=== PATIENT | female | born 1955 | race Caucasian/White ===

== ENCOUNTER 2018-04-02 05:36 | Outpatient (CLI) | payer OTHER ==
[~2018-04-02] VITALS: Ht 165.1 cm; Wt 77.1 kg
[2018-04-02] MEDS ORDERED: NF-ESOM40C PO (13:24)
== END 2018-04-02 13:29 ==
LOC: PREOP 05:36
PROVIDERS: ATTEND Surgery
DX: Z01.818 Encounter for other preprocedural examination (principal)

== ENCOUNTER 2018-04-06 11:12 | Day surgery (SDC) | payer OTHER ==
[~2018-04-06] VITALS: Ht 165.1 cm; Wt 77.1 kg
[~2018-04-06 11:12] MED LIST: NF-ESOM40C PO
[2018-04-06] MEDS ORDERED: LACTATED RINGERS 1,000 ML IV ONE (11:14)
--- OUTSIDE RECORDS SUMMARY | 2018-04-06 11:20 | XMS REPORT ---
Author BHAVNA Alva Organization [employer] Address Unknown Phone Unavailable Care Team Providers Care Trim Technician Name Role Phone BHAVNA LACY CP Unavailable Allergies, Adverse Reactions, Alerts Substance Reaction Event Type N.K.D.A. Info Not Available Non Drug Allergy Problems Problem Type Condition Code Onset Dates Condition Status Assessment Dental examination Z01.20 Active Problem Encounter for dental examination Z01.20 Active Medications No Known Medications Procedures Procedure Coding System Code Date AMALGAM-3 SURFACES PRIMARY/PERM CPT-4 D2160 Nov 07, 2015 Vital Signs Date/Time: Nov 07, 2015 Blood Pressure Diastolic 65 mmHg Blood Pressure Systolic 123 mmHg Results No Known Results Summary Purpose [employer] Submission
--- OUTSIDE RECORDS SUMMARY | 2018-04-06 11:20 | XMS REPORT ---
Author Author BRADLEY ALVAREZ [facility] Address [address] [place] [address] Care Team Providers Care Boot Turner Name Role Phone BRADLEY ALVAREZ Unavailable PROBLEMS Unknown Problems ALLERGIES No Known Allergies ENCOUNTERS IMMUNIZATIONS No Known Immunizations SOCIAL HISTORY No smoking Hx information available REASON FOR VISIT PLAN OF CARE VITAL SIGNS MEDICATIONS No Known Medications RESULTS PROCEDURES INSTRUCTIONS MEDICATIONS ADMINISTERED No Known Medications MEDICAL (GENERAL) HISTORY
--- OUTSIDE RECORDS SUMMARY | 2018-04-06 11:20 | XMS REPORT ---
Author Author BIANKA RONDON [facility] [employer] Address Unknown Phone Unavailable Care Team Providers Care Product Marketing Executive Name Role Phone BIANKA RONDON CP Unavailable Allergies, Adverse Reactions, Alerts Substance Reaction Event Type N.K.D.A. Info Not Available Non Drug Allergy Problems Problem Type Condition Code Onset Dates Condition Status Assessment Visit for dental examination Z01.20 Active Assessment Encounter for dental examination Z01.20 Active Problem Encounter for dental examination Z01.20 Active Medications No Known Medications Procedures Procedure Coding System Code Date Periodontal scaling and root CPT-4 D4341 August 30, 2015 Periodontal scaling and root CPT-4 D4341 August 30, 2015 INTRAORL-PERIAPICAL 1 FILM 37759 CPT-4 D0220 August 30, 2015 INTRAORL-PERIAPICAL EA ADD FILM CPT-4 D0230 August 30, 2015 COMP ORAL EVALUATION - NEW/EST PT CPT-4 D0150 August 30, 2015 PANORAMIC FILM SEE ALSO CODE 03625 CPT-4 D0330 August 30, 2015 BITEWINGS - FOUR FILMS CPT-4 D0274 August 30, 2015 PROPHYLAXIS - ADULT CPT-4 D1110 August 30, 2015 INTRAORL-PERIAPICAL EA ADD FILM CPT-4 D0230 August 30, 2015 INTRAORL-PERIAPICAL EA ADD FILM CPT-4 D0230 August 30, 2015 INTRAORL-PERIAPICAL EA ADD FILM CPT-4 D0230 August 30, 2015 INTRAORL-PERIAPICAL EA ADD FILM CPT-4 D0230 August 30, 2015 Vital Signs Date/Time: August 30, 2015 Blood Pressure Diastolic 65 mmHg Blood Pressure Systolic 107 mmHg Results No Known Results Summary Purpose eClinicalWorks Submission
[2018-04-06] MEDS ORDERED: LACTATED RINGERS 1,000 ML IV STA (11:27)
[2018-04-06 11:39] VITALS: BP 121/76
[2018-04-06] MEDS ORDERED: PROPOFOL INJECTION 50 ML IV ONE (12:28)
--- NOTE | 2018-04-06 13:06 | Progress Note-Pre Operative ---
Pre-Operative Progress Note H&P Reviewed The H&P was reviewed, patient examined and no changes noted. Time Seen by Provider: 13:04 Date H&P Reviewed: Apr 06, 2018 Time H&P Reviewed: 13:05 Pre-Operative Diagnosis: Rectal bleed, hx of UC SHANNAN HAMILTON DO Apr 06, 2018 13:06
--- NOTE | 2018-04-06 13:46 | Progress Note-Post Operative ---
Post-Operative Progess Note Surgeon (s)/Ambulatory Care (s) Surgeon SHANNAN HAMILTON DO Ambulatory Care: none Pre-Operative Diagnosis Rectal bleed, hx of UC Post-Operative Diagnosis Sigmoid colon polyp Diverticula Internal hemorrhoids Procedure & Operative Findings Date of Procedure 04/06/18 Procedure Performed/Findings Colon with cold bx Anesthesia Type IV sedation by RN NURSERY Estimated Blood Loss Estimated blood loss (mL): scant Specimens/Packing Specimens Removed sigmoid polyp x 2 SHANNAN HAMILTON DO Apr 06, 2018 13:46
--- NOTE | 2018-04-06 13:48 | Endoscopy Discharge Instruct ---
Endo Procedure/Findings Findings 1.: Polyp 2.: Diverticulosis 3.: Internal Hemorrhoids Discharge Instructions - Activity: You might feel a little sleepy until tomorrow. This is due to the medicine you received to relax you. Until tomorrow, you should: NOT drive a car, operate machinery or power tools. NOT drink any alcoholic beverages. NOT make any important decisions or sign importortant papers. Do not return to work until tomorrow, unless otherwise instructed. Resume previous activities tomorrow. Diet: Start by taking liquids. If you tolerate liquids, advance to solid food. Make an appointment for one week. Notify Physician - If you experience excessive bleeding, unusual abdominal pain, fever, or chest pain, contact your doctor immediately. Follow-Up: - I have received and understand the above instructions and will call my doctor if I have any further questions. Patient Signature Date Nurse Signature Other (Relationship) SHANNAN HAMILTON DO Apr 06, 2018 13:47
[2018-04-06 14:05] VITALS: BP 123/69
[2018-04-06 14:25] VITALS: BP 119/72
[2018-04-06 14:40] VITALS: BP 119/72
--- NOTE | 2018-04-06 23:51 | OPERATIVE REPORT ---
DATE OF SERVICE: 04/06/2018 PREOPERATIVE DIAGNOSES: Some rectal bleed, history of colitis. POSTOPERATIVE DIAGNOSES: 1. Sigmoid polyps. 2. Diverticula. 3. Internal hemorrhoids. PROCEDURE: Colonoscopy with cold biopsy. SURGEON: Bowen Moore DO SOCIAL SCIENCES RESEARCH SCIENTIST: None. ANESTHESIA: IV sedation by the MACHINE FELLER. SPECIMEN: Two polyps from the sigmoid colon. BLOOD LOSS: Scant. FLUIDS: Per anesthesia. POSTOPERATIVE CONDITION: Stable. INDICATION FOR PROCEDURE: The patient is a 62-year-old female who stated she had some ulcerative colitis, has not had a colonoscopy since 2000, started seeing some bleeding recently. FINDINGS: The patient had 2 small polyps in the sigmoid colon, a large diverticula, mostly in the sigmoid and descending colon, but some in the right colon as well and she had some grade I almost 2 internal hemorrhoids. PROCEDURE NOTE: After informed consent was obtained, the patient was brought to the endoscopy suite, placed in the bed in the left lateral decubitus position. She was administered IV sedation by the MACHINE FELLER who then monitored her vitals the entire time, heart rate, blood pressure and pulse ox and the scope was inserted, pushed all the way to about [address], noted some large diverticula, took pictures. Once in the cecum, took a picture of appendiceal orifice, noted the ileocecal valve and then slowly withdrew the scope insufflating to look circumferentially at the garcia looking at the cecum up the ascending colon to the hepatic flexure, down the transverse colon, the splenic flexure, into the descending colon down and sigmoid. In the sigmoid, saw two flat polyps, tried to snare these, but unable to. cold biopsy to remove these and continued down into the rectum, retroflexed the rectal vault, saw some grade I almost II internal hemorrhoids, did not see any signs of ulcerative colitis. The patient may have been wrong about that diagnosis. Removed the scope. The patient tolerated the procedure well and recovered in endoscopy suite. Job ID: [id number] DocumentID: [id number] Dictated Date: 04/06/2018 15:03:54 Data Quality Consultant Date: 04/06/2018 23:51:04 Dictated By: BOWEN MOORE DO
== END 2018-04-06 14:40 | disposition home or self-care (01) ==
LOC: ENDO 11:12
PROVIDERS: ATTEND Surgery
DX: K52.9 Noninfective gastroenteritis and colitis, unspecified (principal); K63.89 Other specified diseases of intestine; K63.5 Polyp of colon; K57.30 Diverticulosis of large intestine without perforation or abscess without bleeding; K64.8 Other hemorrhoids; N28.9 Disorder of kidney and ureter, unspecified; Z87.891 Personal history of nicotine dependence; Z87.19 Personal history of other diseases of the digestive system

== ENCOUNTER → 2019-05-11 | Outpatient (CLI) | payer OTHER ==
--- NOTE | 2019-05-11 10:06 | Diagnostic Imaging Report ---
PROCEDURE: US Gallbladder. TECHNIQUE: Multiple real-time grayscale images were obtained over the right upper quadrant in various projections. INDICATION: Right upper quadrant pain. FINDINGS: The gallbladder is distended measuring 15 cm in length with 4.5 cm transverse diameter. There are multiple intraluminal gallstones present. It appeared mobile, the gallbladder wall is 2.6 mm in thickness. The pancreas could not be visualized. The unobstructed right kidney measured 8.2 cm. The liver parenchyma normal. No biliary dilatation. IMPRESSION: Stone-containing, distended gallbladder with no intra or extrahepatic bile duct dilatation. No ascites or acute fluid collection demonstrated. Dictated by: Dictated on workstation # [id number]
== END ==
LOC: RAD 07:46
PROVIDERS: ATTEND Nurse Practitioner Primary Care
DX: K80.20 Calculus of gallbladder without cholecystitis without obstruction (principal)
CPT/HCPCS: 76705

== ENCOUNTER 2019-07-27 05:39 | Outpatient (RCR) | payer OTHER ==
[~2019-07-27] VITALS: Ht 165 cm; Wt 81.0 kg
== END 2019-07-27 15:15 | disposition home or self-care (01) ==
LOC: PREOP 05:39
PROVIDERS: ATTEND Specialist
DX: Z01.818 Encounter for other preprocedural examination (principal); Z11.59 Encounter for screening for other viral diseases
CPT/HCPCS: 87635

== ENCOUNTER 2019-07-30 09:44 | Day surgery (SDC) | payer OTHER ==
[~2019-07-30] VITALS: Ht 165 cm; Wt 81.0 kg
[2019-07-30 10:15] VITALS: BP 126/77
--- OUTSIDE RECORDS SUMMARY | 2019-07-30 10:19 | XMS REPORT | Continuity of Care Document ---
Author Organization Unknown Address Unknown Phone Unavailable Allergies Active Description Code Type Severity Reaction Onset Reported/Identified Relationship to Patient Clinical Status Yes No Known Drug Allergies [id number] Drug Allergy Unknown N/A 04/02/2018 Medications There is no data. Problems Date Dx Coded Attending Type Code Diagnosis Diagnosed By 04/02/2018 SHANNAN HAMILTON DO Ot Z01.8 18 ENCOUNTER FOR OTHER PREPROCEDURAL EXAMIN 04/06/2018 SHANNAN HAMILTON DO Ot K52.9 NONINFECTIVE GASTROENTERITIS AND COLITIS 04/06/2018 SHANNAN HAMILTON DO Ot K57.3 0 DVRTCLOS OF LG INT W/O PERFORATION OR AB 04/06/2018 SHANNAN HAMILTON DO Ot K63.5 POLYP OF COLON 04/06/2018 SHANNAN HAMILTON DO Ot K63.8 9 OTHER SPECIFIED DISEASES OF INTESTINE 04/06/2018 SHANNAN HAMILTON DO Ot K64.8 OTHER HEMORRHOIDS 04/06/2018 SHANNAN HAMILTON DO Ot N28.9 DISORDER OF KIDNEY AND URETER, UNSPECIFI 04/06/2018 SHANNAN HAMILTON DO Ot Z87.1 9 PERSONAL HISTORY OF OTHER DISEASES OF TH 04/06/2018 SHANNAN HAMILTON DO Ot Z87.8 91 PERSONAL HISTORY OF NICOTINE DEPENDENCE 04/07/2018 SHANNAN HAMILTON DO Ot Z01.8 18 ENCOUNTER FOR OTHER PREPROCEDURAL EXAMIN 04/09/2018 SHANNAN HAMILTON DO Ot K52.9 NONINFECTIVE GASTROENTERITIS AND COLITIS 04/09/2018 SHANNAN HAMILTON DO Ot K57.3 0 DVRTCLOS OF LG INT W/O PERFORATION OR AB 04/09/2018 SHANNAN HAMILTON DO Ot K63.5 POLYP OF COLON 04/09/2018 SHANNAN HAMILTON DO Ot K63.8 9 OTHER SPECIFIED DISEASES OF INTESTINE 04/09/2018 SHANNAN HAMILTON DO Ot K64.8 OTHER HEMORRHOIDS 04/09/2018 SHANNAN HAMILTON DO Ot N28.9 DISORDER OF KIDNEY AND URETER, UNSPECIFI 04/09/2018 SHANNAN HAMILTON DO Ot Z87.1 9 PERSONAL HISTORY OF OTHER DISEASES OF TH 04/09/2018 SHANNAN HAMILTON DO Ot Z87.8 91 PERSONAL HISTORY OF NICOTINE DEPENDENCE 05/12/2019 JS AGUILERA APRN Ot K80.20 CALCULUS OF GALLBLADDER W/O CHOLECYSTITI 05/13/2019 JS AGUILERA APRN Ot K80.20 CALCULUS OF GALLBLADDER W/O CHOLECYSTITI 07/22/2019 JS AGUILERA APRN Ot K80.20 CALCULUS OF GALLBLADDER W/O CHOLECYSTITI 07/27/2019 JS AGUILERA APRN Ot K80.20 CALCULUS OF GALLBLADDER W/O CHOLECYSTITI Procedures There is no data. Results Test Result Range - 04/23/19 15:28 GLUCOSE 85 mg/dL 65-139 UREA NITROGEN (BUN) 11 mg/dL 7-25 CREATININE 0.91 mg/dL 0.50-0.99 eGFR NON-AFR. BOTSWANAN 67 mL/min/1.73m2 > OR = 60 eGFR 77 mL/min/1.73m2 > OR = 60 BUN/CREATININE RATIO NOT APPLICABLE (calc) 6-22 SODIUM 140 mmol/L 135-146 POTASSIUM 4.0 mmol/L 3.5-5.3 CHLORIDE 103 mmol/L 98-110 CARBON DIOXIDE 30 mmol/L 20-32 CALCIUM 9.4 mg/dL 8.6-10.4 PROTEIN, TOTAL 7.0 g/dL 6.1-8.1 ALBUMIN 4.4 g/dL 3.6-5.1 GLOBULIN 2.6 g/dL (calc) 1.9-3.7 ALBUMIN/GLOBULIN RATIO 1.7 (calc) 1.0-2. 5 BILIRUBIN, TOTAL 0.5 mg/dL 0.2-1.2 ALKALINE PHOSPHATASE 100 U/L 37-153 AST 17 U/L 10-35 ALT 16 U/L 6-29 Coronavirus SARS-CoV-2 SO 2018 - 0 07:55 Coronavirus Ab [Units/volume] in Serum Negative Negative Encounters ACCT No. Visit Date/Time Discharge Status Pt. Type Provider Facility Loc./Unit Complaint [id number] 03/24/2018 13:00:00 03/24/2018 23:59:5 9 CLS Outpatient PATRICK COLLAZO PA-C [facility] [id number] 04/23/2019 15:00:00 Document Registration [id number] 07/27/2019 05:39:00 15:15:00 DIS Outpatient THALIA PARDO MD [facility] PREOP CATARACT RIGHT EYE [id number] 05/11/2019 07:46:00 23:59:59 CLS Outpatient JS AGUILERA APRN [facility] RAD RUQ ABD PAIN [id number] 04/06/2018 11:12:00 14:40:00 DIS Outpatient SHANNAN HAMILTON DO [facility] ENDO SCREENING/HX OF U.C. [id number] 04/02/2018 05:36:00 019 13:29:00 DIS Outpatient SHANNAN HAMILTON DO [facility] PREOP COLONOSCOPY [id number] 07/30/2019 13:30:00 P EN Preadmit THALIA PARDO MD [facility] SDC CATARACT RIGHT EYE
--- OUTSIDE RECORDS SUMMARY | 2019-07-30 10:19 | XMS REPORT ---
Author Author Annabella AGUILERA [facility] Address [address] [place] [address] Care Team Providers Care Vice President For Philanthropy Name Role Phone ALEJS Unavailable PROBLEMS Type Condition ICD9-CM Code BNU57-GU Code Onset Dates Condition S tatus SNOMED Code Problem Ulcerative rectosigmoiditis without complication K 51.30 Active 01386040 Problem Gastroesophageal reflux disease, esophagitis pre sence not specified K21.9 Active 243464426 Problem Renal insufficiency N28.9 Active 901674698 Problem Calculus of gallbladder with chronic cho lecystitis without obstruction K80.10 Active 26848926 ALLERGIES No Information ENCOUNTERS Encounter Location Date Diagnosis [place] [address] [place] [id number] [place] [phone] Apr, [place] [address] [place] [id number] [place] [phone] Apr, [place] [address] [place] [id number] [place] [phone] Mar, Hx of ulcerative colitis Z87 .19 ; Right upper quadrant pain R10.11 ; Screening for colon cancer Z12.11 ; Gastroesophageal reflux disease, esophagitis presence not specified K21.9 and Renal insufficiency N28.9 [facility] [address] [facility] [id number] [address] [place] [phone] Mar, Hx of ulcerative colitis Z87 .19 ; Gastroesophageal reflux disease, esophagitis presence not specified K21.9 ; Screening for colon cancer Z12.11 ; Renal insufficiency N28.9 and Right upper quadrant pain R10.11 [place] [address] [place] [id number] [place] [phone] Feb, Renal insufficiency N28.9 [place] [address] [facility] [id number] [address] [place] [phone] Feb, Vertigo R42 ; Epigastric maura n R10.13 ; Gastroesophageal reflux disease, esophagitis presence not specified K21.9 ; Screening for lipoid disorders Z13.220 ; Encounter for screening for other viral diseases Z11.59 and Other specified personal risk factors, not elsewhere classified Z91.89 [facility] [address] [facility] [id number] [address] [place] [phone] Oct, Ganglion cyst of dorsum of r ight wrist M67.431 [facility] [address] [facility] [id number] [address] [place] [phone] Sep, [facility] [id number] [place] [id number] Oct, Dental examination Z01.20 [facility] [address] [id number] [place] [id number] Aug, Visit for dental examination Z01.20 and Encounter for dental examination Z01.20 [facility] [address] [id number] [address] [place] [phone] Jul, Dental examination Z01.20 [facility] [address] [id number] [place] [id number] Jul, Dental examination Z01.20 [facility] [address] [id number] [address] [place] [id number] Aug, Dental examination V72.2 [facility] [id number] [place] [id number] Jul, Dental examination V72.2 IMMUNIZATIONS No Known Immunizations SOCIAL HISTORY Never Assessed REASON FOR VISIT Requesting letter PLAN OF CARE VITAL SIGNS MEDICATIONS Unknown Medications RESULTS No Results PROCEDURES No Known procedures INSTRUCTIONS MEDICATIONS ADMINISTERED No Known Medications MEDICAL (GENERAL) HISTORY Type Description Date Medical History Tuberculosis IN [facility]ILDH[facility]OD Medical History ulcerative colitis Medical History vertigo, neg CT head 01/2018 Surgical History colonoscopy- Dr Bowen Delgado, [place] 01 03
[2019-07-30] MEDS ORDERED: POVIDONE (BETADINE) OPHTH SOLN 5% 30 ML OP ONE (10:30)
[2019-07-30] MEDS ORDERED: MOXIFLOXACIN OPHTH SOLN 5 MG/ML 0.3 ML SYRINGE OP ONE (10:30)
[2019-07-30] MEDS: TETRACAINE 0.5% OPHTH SOLN 4 ML BTL (SINGLE DOSE ONLY) OP PRN ×4 (10:30→10:55)
[2019-07-30] MEDS ORDERED: LIDOCAINE PF 1% 2 ML VIAL IR PRN (10:30)
[2019-07-30] MEDS ORDERED: TIMOLOL MALEATE 0.5% 5 ML (TIMOPTIC) BTL OU PRN (10:30)
[2019-07-30] MEDS: CYCLOPENTOLATE 1% (CYCLOGYL) 2 ML DROPS OP SCH ×3 (10:38→10:55)
[2019-07-30] MEDS: PHENYLEPHRINE 10% OPHTH (NEO-SYN) 5 ML BTL OU SCH ×3 (10:38→10:55)
--- NOTE | 2019-07-30 11:07 | Ophthalmologist Pre-Op Note ---
Pre-Operative Progress Note H&P Reviewed The H&P was reviewed, patient examined and no changes noted. Date H&P Reviewed: Jul 30, 2019 Time H&P Reviewed: 11:07 Pre-Op Dx Cataract, Right Eye THALIA PARDO MD Jul 30, 2019 11:07
[2019-07-30] MEDS ORDERED: MIDAZOLAM 2 MG/2 ML (VERSED) VIAL ONE (11:10)
[2019-07-30 11:38] VITALS: BP 128/71
--- NOTE | 2019-07-30 11:39 | Ophthalmology Operative Report ---
Cataract removal/placement IOL PREOPERATIVE DIAGNOSIS: Cataract Right Eye POSTOPERATIVE DIAGNOSIS: Cataract Right Eye PROCEDURE: Cataract removal and placement of posterior chamber implant, right eye SURGEON: Stan Pardo ANESTHESIA: Topical with sedation COMPLICATIONS: None ESTIMATED BLOOD LOSS: Minimal DESCRIPTION OF PROCEDURE: After proper informed consent was obtained, the patient, a 63 female, was taken to the Operating Room and the right eye was anesthetized with tetracaine. The right eye was then prepped and draped in the usual manner. A wire lid speculum was placed. A paracentesis was made at the left hand position. Preservative free lidocaine was injected into the anterior chamber followed by viscoelastic. A clear corneal incision was made in the temporal position. A capsulorrhexis was preformed and the central nuclear and cortical material were removed. The posterior capsule was polished and Miko 15.0 [id number] IOL was placed into the capsular bag. The residual viscoelastic was aspirated and balanced saline solution was injected into the anterior chamber. Moxifloxacin was injected into the anterior chamber. The wound was checked and found to be water tight. The patient tolerated the procedure well without complications. STAN PARDO MD Jul 30, 2019 11:39
--- NOTE | 2019-07-30 11:49 | Anesthesia-General Post-Op ---
MAC Patient Condition Mental Status/LOC: Same as Preop Cardiovascular: Satisfactory Nausea/Vomiting: Absent Respiratory: Satisfactory Pain: Controlled Complications: Absent Post Op Complications Complications None Follow Up Care/Instructions Patient Instructions None needed. Anesthesiology Discharge Order Discharge Order Patient is doing well, no complaints, stable vital signs, no apparent adverse anesthesia problems. No complications reported per nursing. CORBY HARRY VOCATIONAL REHABILITATION COUNSELOR Jul 30, 2019 11:49
[2019-07-30] MEDS ORDERED: acetaZOLAMIDE ER 500 MG CAP (DIAMOX SEQUELS) PO ONE (12:00)
== END 2019-07-30 11:45 | disposition home or self-care (01) ==
LOC: SDC 09:44
PROVIDERS: ATTEND Specialist
DX: H25.11 Age-related nuclear cataract, right eye (principal); Z87.891 Personal history of nicotine dependence
CPT/HCPCS: 66984; V2787

== ENCOUNTER 2019-10-06 06:09 | Outpatient (CLI) | payer MEDICARE, BC ==
[~2019-10-06] VITALS: Ht 165 cm; Wt 81.8 kg
== END 2019-10-07 08:34 | disposition home or self-care (01) ==
LOC: PREOP 06:09
PROVIDERS: ATTEND Specialist
DX: Z01.818 Encounter for other preprocedural examination (principal)

== ENCOUNTER 2019-10-08 09:21 | Day surgery (SDC) | payer MEDICARE, BC ==
[~2019-10-08] VITALS: Ht 165 cm; Wt 81.8 kg
[2019-10-08 09:30] VITALS: BP 111/61
[2019-10-08] MEDS ORDERED: LIDOCAINE PF 1% 2 ML VIAL IR PRN (09:30)
[2019-10-08] MEDS ORDERED: POVIDONE (BETADINE) OPHTH SOLN 5% 30 ML OP ONE (09:30)
[2019-10-08] MEDS ORDERED: TIMOLOL MALEATE 0.5% 5 ML (TIMOPTIC) BTL OU PRN (09:30)
[2019-10-08] MEDS ORDERED: MOXIFLOXACIN OPHTH SOLN 5 MG/ML 0.3 ML SYRINGE OP ONE (09:30)
[2019-10-08] MEDS: TETRACAINE 0.5% OPHTH SOLN 4 ML BTL (SINGLE DOSE ONLY) OU PRN ×4 (09:38→10:11)
[2019-10-08] MEDS: CYCLOPENTOLATE 1% (CYCLOGYL) 2 ML DROPS OP SCH ×3 (09:54→10:11)
[2019-10-08] MEDS: PHENYLEPHRINE 10% OPHTH (NEO-SYN) 5 ML BTL OU SCH ×3 (09:54→10:12)
--- NOTE | 2019-10-08 10:41 | Ophthalmologist Pre-Op Note ---
Pre-Operative Progress Note H&P Reviewed The H&P was reviewed, patient examined and no changes noted. Date H&P Reviewed: Oct 08, 2019 Time H&P Reviewed: 10:41 Pre-Op Dx Cataract, Left Eye THALIA PARDO MD Oct 08, 2019 10:41
[2019-10-08] MEDS ORDERED: MIDAZOLAM 2 MG/2 ML (VERSED) VIAL ONE (10:43)
[2019-10-08] MEDS ORDERED: acetaZOLAMIDE ER 500 MG CAP (DIAMOX SEQUELS) PO ONE (11:00)
--- NOTE | 2019-10-08 11:14 | Ophthalmology Operative Report ---
Cataract removal/placement IOL PREOPERATIVE DIAGNOSIS: Cataract Left Eye POSTOPERATIVE DIAGNOSIS: Cataract Left Eye PROCEDURE: Cataract removal and placement of posterior chamber implant, left eye SURGEON: Stan Pardo ANESTHESIA: Topical with sedation COMPLICATIONS: None ESTIMATED BLOOD LOSS: Minimal DESCRIPTION OF PROCEDURE: After proper informed consent was obtained, the patient, a 64 female, was taken to the Operating Room and the left eye was anesthetized with tetracaine. The left eye was then prepped and draped in the usual manner. A wire lid speculum was placed. A paracentesis was made at the left hand position. Preservative free lidocaine was injected into the anterior chamber followed by viscoelastic. A clear corneal incision was made in the temporal position. A capsulorrhexis was preformed and the central nuclear and cortical material were removed. The posterior capsule was polished and an Miko 13.5 [id number] was placed into the capsular bag. The residual viscoelastic was aspirated and balanced saline solution was injected into the anterior chamber. Moxifloxacin was injected into the anterior chamber. The wound was checked and found to be water tight. The patient tolerated the procedure well without complications. STAN PARDO MD Oct 08, 2019 11:14
[2019-10-08 11:20] VITALS: BP 106/60
--- NOTE | 2019-10-08 14:28 | Anesthesia-General Post-Op ---
MAC Patient Condition Mental Status/LOC: Same as Preop Cardiovascular: Satisfactory Nausea/Vomiting: Absent Respiratory: Satisfactory Pain: Controlled Complications: Absent Post Op Complications Complications None Follow Up Care/Instructions Patient Instructions None needed. Anesthesiology Discharge Order Discharge Order Patient was seen this morning after the procedure and she was doing well, no complaints, stable vital signs, no apparent adverse anesthesia problems. SRIRAM CHURCH DO Oct 08, 2019 14:28
== END 2019-10-08 11:20 | disposition home or self-care (01) ==
LOC: SDC 09:21
PROVIDERS: ATTEND Specialist
DX: H25.12 Age-related nuclear cataract, left eye (principal); Z80.3 Family history of malignant neoplasm of breast
CPT/HCPCS: 66984; V2787

== ENCOUNTER 2019-10-13 05:49 | Outpatient (CLI) | payer MEDICARE, BC ==
[~2019-10-13] VITALS: Ht 165 cm; Wt 81.8 kg
== END 2019-10-13 12:19 ==
LOC: PREOP 05:49
PROVIDERS: ATTEND Specialist
DX: Z01.818 Encounter for other preprocedural examination (principal)

== ENCOUNTER 2019-10-15 07:30 | Day surgery (SDC) | payer BC, MEDICARE ==
[~2019-10-15] VITALS: Ht 165 cm; Wt 81.8 kg
[2019-10-15 07:30] VITALS: BP 110/66
[2019-10-15] MEDS ORDERED: TETRACAINE 0.5% OPHTH SOLN 4 ML BTL (SINGLE DOSE ONLY) OU PRN (07:45)
[2019-10-15] MEDS ORDERED: PHENYLEPHRINE 10% OPHTH (NEO-SYN) 5 ML BTL OU PRN (07:45)
[2019-10-15] MEDS ORDERED: TROPICAMIDE 1% OPH SOLN (MYDRIACYL) 15 ML BTL OU PRN (07:45)
[2019-10-15 08:15] VITALS: BP 110/66
--- NOTE | 2019-10-15 08:38 | Ophthalmologist Pre-Op Note ---
Pre-Operative Progress Note H&P Reviewed The H&P was reviewed, patient examined and no changes noted. Date H&P Reviewed: Oct 15, 2019 Time H&P Reviewed: 08:21 Pre-Op Dx Secondary Cataract, Right Eye THALIA PARDO MD Oct 15, 2019 08:38
--- NOTE | 2019-10-15 08:40 | Ophthalmology Operative Report ---
YAG Capsulotomy PREOPERATIVE DIAGNOSIS: Secondary Cataract Right Eye POSTOPERATIVE DIAGNOSIS: Secondary Cataract Right Eye PROCEDURE: YAG Capsulotomy, right eye SURGEON: Stan Pardo ANESTHESIA: Topical anesthesia COMPLICATIONS: None ESTIMATED BLOOD LOSS: Minimal DESCRIPTION OF PROCEDURE: After proper informed consent was obtained, the patient's, a 64 female, right eye received one drop of Tropicamide and one drop of Tetracaine. The patient was then placed at the YAG laser and using a power of [ 3.5] millijoules and [ 24] bursts were used to fashion a central capsulotomy. The patient tolerated the procedure well without complications. STAN PARDO MD Oct 15, 2019 08:40
== END 2019-10-15 08:20 | disposition home or self-care (01) ==
LOC: SDC 07:30
PROVIDERS: ATTEND Specialist
DX: H26.491 Other secondary cataract, right eye (principal); Z87.891 Personal history of nicotine dependence